=== PATIENT | male | born 1975 | race Caucasian/White ===

== ENCOUNTER 2017-01-23 11:50 | Observation (INO) | payer BC ==
[~2017-01-23 11:50] MED LIST: BENTYL20 MG PO; COLACE100 MG PO; NORCO 5/3251 TA1 PO
[2017-01-23 14:14] LABS: URINE BILIRUBIN NEGATIVE (NEG); URINE BLOOD NEGATIVE (NEG); URINE GLUCOSE (UA) NEGATIVE (NEG); URINE KETONE NEGATIVE (NEG); URINE LEUKOCYTE ESTERASE NEGATIVE (NEG); URINE NITRITE NEGATIVE (NEG); URINE PROTEIN NEGATIVE (NEG)
[2017-01-23 14:17] LABS: URINE APPEARANCE CLEAR; URINE COLOR YELLOW
[2017-01-23] MEDS ORDERED: XIFAXAN550 M1 PO (14:17)
[2017-01-23] MEDS ORDERED: OMEPRAZOLE40 M2 PO (14:19)
[2017-01-23] MEDS ORDERED: DICYCLOMINE HCL20 M1 PO (14:23)
[2017-01-23 14:26] LABS: ALBUMIN 3.8 g/dl (3.5-5.0); ALKALINE PHOSPHATASE 71 U/L (33-138); ALT/SGPT 17 U/L (12-78); ANION GAP 10 mmol/L (0-20); AST/SGOT 10 U/L (10-40); BILIRUBIN,TOTAL 0.3 mg/dl (0.0-1.5); BLOOD UREA NITROGEN 9 mg/dl (6-24); CALCIUM 8.8 mg/dl (8.5-10.5); CARBON DIOXIDE-VENOUS 27 mmol/L (22-32); CHLORIDE 107 mmol/l (96-110); CREATININE 0.85 mg/dl (0.60-1.30); GLUCOSE 80 mg/dL (70-110); LIPASE 113 U/L (73-393); POTASSIUM 4.1 mmol/L (3.7-5.1); SODIUM 140 mmol/L (135-145); eGFR VALUE FOR BLACK >90 mL/Min
[2017-01-23 14:29] LABS: HCT-HEMATOCRIT 45.7 % (36.0-53.5); HGB-HEMOGLOBIN 15.7 gm/dl (13.5-17.0); IMMATURE GRANULOCYTES ABSOLUTE 0.02 tho/cmm (0-0.03); IMMATURE GRANULOCYTES PERCENT 0.3 % (0-0.3); LYMPH % 27.3 % (20-45); LYMPH ABSOLUTE COUNT 2.2 tho/cmm (0.8-4.5); MCH (MEAN CORPUSCULAR HGB) 29.7 pg (28.0-32.0); MCHC MEAN CORPUSCULAR HGB CONC 34.4 % (32.0-36.0); MCV (MEAN CELL VOLUME) 86.6 fl (82.0-96.0); MEAN PLATELET VOLUME 9.1 cmc (9.4-12.4); MONO % 4.9 % (0-12); MONOCYTE ABSOLUTE COUNT 0.4 tho/cmm (0.0-1.2); NEUTROPHIL ABSOLUTE COUNT 5.4 tho/cmm (1.6-8.0); NEUTROPHIL-AUTOMATED 5.4 tho/cmm (1.6-8.0); NEUTROPHILS % 67.5 % (40-80); PLATELET COUNT 310 tho/cmm (150-450); RED BLOOD COUNT 5.28 mil/cmm (4.40-5.70); RED CELL DISTRIBUTION WIDTH 13.3 % (12.4-16.4); WHITE BLOOD COUNT 7.9 tho/cmm (4.0-10.0)
[2017-01-24 06:28] LABS: HCT-HEMATOCRIT 43.1 % (36.0-53.5); HGB-HEMOGLOBIN 14.7 gm/dl (13.5-17.0); IMMATURE GRANULOCYTES ABSOLUTE 0.01 tho/cmm (0-0.03); IMMATURE GRANULOCYTES PERCENT 0.1 % (0-0.3); LYMPH % 32.2 % (20-45); LYMPH ABSOLUTE COUNT 2.4 tho/cmm (0.8-4.5); MCH (MEAN CORPUSCULAR HGB) 29.5 pg (28.0-32.0); MCHC MEAN CORPUSCULAR HGB CONC 34.1 % (32.0-36.0); MCV (MEAN CELL VOLUME) 86.5 fl (82.0-96.0); MEAN PLATELET VOLUME 9.3 cmc (9.4-12.4); MONO % 6.8 % (0-12); MONOCYTE ABSOLUTE COUNT 0.5 tho/cmm (0.0-1.2); NEUTROPHIL ABSOLUTE COUNT 4.5 tho/cmm (1.6-8.0); NEUTROPHIL-AUTOMATED 4.5 tho/cmm (1.6-8.0); NEUTROPHILS % 60.9 % (40-80); PLATELET COUNT 267 tho/cmm (150-450); RED BLOOD COUNT 4.98 mil/cmm (4.40-5.70); RED CELL DISTRIBUTION WIDTH 13.5 % (12.4-16.4); WHITE BLOOD COUNT 7.4 tho/cmm (4.0-10.0)
[2017-01-24 06:38] LABS: ANION GAP 9 mmol/L (0-20); BLOOD UREA NITROGEN 8 mg/dl (6-24); CALCIUM 8.5 mg/dl (8.5-10.5); CARBON DIOXIDE-VENOUS 28 mmol/L (22-32); CHLORIDE 112 mmol/l (96-110); CREATININE 0.88 mg/dl (0.60-1.30); GLUCOSE 84 mg/dL (70-110); POTASSIUM 4.5 mmol/L (3.7-5.1); SODIUM 144 mmol/L (135-145); eGFR VALUE FOR BLACK >90 mL/Min
== END 2017-01-24 20:59 ==
LOC: EDMED 11:50 → EMR2 19:19 → 5WE 19:31
PROVIDERS: Emergency Medicine; Nurse Practitioner Acute Care; ADMIT Internal Medicine
DX: R10.32 Left lower quadrant pain (principal); G89.29 Other chronic pain; K63.89 Other specified diseases of intestine; R91.1 Solitary pulmonary nodule; R63.4 Abnormal weight loss; K76.0 Fatty (change of) liver, not elsewhere classified; F17.210 Nicotine dependence, cigarettes, uncomplicated; Z79.899 Other long term (current) drug therapy; Z87.19 Personal history of other diseases of the digestive system; Z90.49 Acquired absence of other specified parts of digestive tract; Z98.890 Other specified postprocedural states
CPT/HCPCS: G0378; J1335; J7030; Q9967